=== PATIENT | female | born 1960 | race Asian ===

== ENCOUNTER 2018-02-13 12:30 | Outpatient (RCR) | payer BC | END 2018-03-02 | disposition home or self-care (01) | LOC: PTY 12:30 | DX: R29.898 Other symptoms and signs involving the musculoskeletal system (principal) ==

== ENCOUNTER 2018-03-17 08:45 | Outpatient (RCR) | payer BC | END 2018-04-01 | disposition home or self-care (01) | LOC: PTY 08:45 | DX: R29.898 Other symptoms and signs involving the musculoskeletal system (principal) ==

== ENCOUNTER 2018-04-06 08:00 | Outpatient (RCR) | payer BC | END 2018-05-02 | disposition home or self-care (01) | LOC: PTY 08:00 | DX: R29.898 Other symptoms and signs involving the musculoskeletal system (principal) ==

== ENCOUNTER 2018-05-26 08:30 | Outpatient (RCR) | payer BC | END 2018-06-02 | disposition home or self-care (01) | LOC: PTY 08:30 | DX: R29.898 Other symptoms and signs involving the musculoskeletal system (principal) ==

== ENCOUNTER 2018-06-09 08:25 | Outpatient (RCR) | payer BC | END 2018-07-02 | disposition home or self-care (01) | LOC: PTY 08:25 | DX: R29.898 Other symptoms and signs involving the musculoskeletal system (principal) ==

== ENCOUNTER 2018-07-10 08:30 | Outpatient (RCR) | payer BC | END 2018-08-02 | disposition home or self-care (01) | LOC: PTY 08:30 | DX: R29.898 Other symptoms and signs involving the musculoskeletal system (principal) ==